=== PATIENT | female | born 1980 | race American Indian/Alaskan Native ===

== ENCOUNTER 2016-12-17 17:55 | Emergency (ER) | payer SELFPAY ==
[2016-12-17] MEDS ORDERED: TYLENOL ONE (19:55)
[2016-12-17] MEDS ORDERED: BICILLIN L-A IM ONE (22:37)
[2016-12-17] MEDS ORDERED: DECADRON IM ONE (22:37)
[2016-12-17] MEDS ORDERED: TORADOL IM ONE (22:37)
[2016-12-17] MEDS ORDERED: TORADOL ONE (22:40)
--- NOTE | 2016-12-17 23:00 | Emergency Department Report ---
ED ENT HPI - General Chief complaint: Sore Throat Stated complaint: SORE THROAT Time Seen by Provider: 12/17/16 22:23 Source: patient Mode of arrival: Ambulatory Limitations: No Limitations - History of Present Illness Initial comments: PT states she has had a sore throat for 3-4 days. PT states she was treating her fever and sore throat with OTC Tylenol at home. PT states today she felt like she would not be able to swallow a pill, so she came to the ED. PT reports that she works in a [place] and she is not sure what sick contacts she has been exposed to. MD complaint: sore throat -: Gradual, days(s) Severity scale (0 -10): 10 Quality: constant Consistency: constant Improves with: none Worsens with: swallowing, eating, other (talking ) Associated Symptoms: fever, pain with swallowing, sore throat. denies: rhinorrhea - Related Data Previous Rx's Medication Instructions Recorded Last Taken Type Acetaminophen/Codeine [Tylenol #3] 1 tab PO Q6H PRN #8 tab 12/17/16 Unknown Rx Allergies Allergy/AdvReac Type Severity Reaction Status Date / Time No Known Allergies Allergy Unverified 12/17/16 19:48 ED Dental HPI - General Chief complaint: Sore Throat Stated complaint: SORE THROAT Time Seen by Provider: 12/17/16 22:23 Source: patient Mode of arrival: Ambulatory Limitations: No Limitations - Related Data Previous Rx's Medication Instructions Recorded Last Taken Type Acetaminophen/Codeine [Tylenol #3] 1 tab PO Q6H PRN #8 tab 12/17/16 Unknown Rx Allergies Allergy/AdvReac Type Severity Reaction Status Date / Time No Known Allergies Allergy Unverified 12/17/16 19:48 ED Review of Systems ROS: Stated complaint: SORE THROAT Other details as noted in HPI Comment: All other systems reviewed and negative Constitutional: fever ENT: throat pain. denies: ear pain Respiratory: denies: shortness of breath, SOB with exertion, SOB at rest Gastrointestinal: denies: nausea, vomiting Genitourinary: denies: abnormal menses Musculoskeletal: myalgia Neurological: other (fatigue ) ED Past Medical Hx - Past Medical History Previous Medical History?: No - Surgical History Past Surgical History?: No - Social History Smoking Status: Never Smoker Substance Use Type: None - Medications Home Medications: Home Medications Medication Instructions Recorded Confirmed Last Taken Type Acetaminophen/Codeine [Tylenol #3] 1 tab PO Q6H PRN #8 tab 12/17/16 Unknown Rx ED Physical Exam - General Limitations: No Limitations General appearance: alert, in no apparent distress, obese - Head Head exam: Present: atraumatic, normocephalic, normal inspection - Eye Eye exam: Present: normal appearance, PERRL, EOMI. Absent: conjunctival injection - ENT ENT exam: Present: normal exam, mucous membranes moist, TM's normal bilaterally , normal external ear exam. Absent: normal orophraynx - Expanded ENT Exam Expanded Mouth exam: Absent: drooling, trismus, muffled voice Throat exam: Positive: tonsillar erythema, tonsillomegaly, tonsillar exudate. Negative: R peritonsillar mass, L peritonsillar mass - Neck Neck exam: Present: normal inspection, tenderness, full ROM, lymphadenopathy - Respiratory Respiratory exam: Present: normal lung sounds bilaterally. Absent: respiratory distress - Cardiovascular Cardiovascular Exam: Present: normal rhythm, tachycardia - GI/Abdominal GI/Abdominal exam: Present: soft. Absent: tenderness - Extremities Exam Extremities exam: Present: normal inspection, full ROM - Back Exam Back exam: Present: normal inspection, full ROM - Neurological Exam Neurological exam: Present: alert, oriented X3, normal gait - Psychiatric Psychiatric exam: Present: normal affect, normal mood - Skin Skin exam: Present: warm, dry, intact, normal color ED Course Vital Signs 12/17/16 12/17/16 12/17/16 19:48 22:18 23:19 Temperature 102.9 F H 99.1 F Pulse Rate 134 H 102 H Respiratory 18 20 Rate Blood Pressure 152/92 Blood Pressure 114/80 [Left] O2 Sat by Pulse 96 97 Oximetry - Reevaluation(s) Reevaluation #1: 12/17/16 22:59 PT aware of dx and plan of care. Reevaluation #2: 12/17/16 23:24 PT reports some improvement after medication. PT tolerating po fluids. PT given strict return precautions. PT has no questions at this time. - Pulse Oximetry Interpretation Digit-Finger Initial Pulse Oximetry Readin Actions Taken: none ED Medical Decision Making - Differential Diagnosis strep pharyngitis Critical Care Time: No Critical care attestation.: If time is entered above; I have spent that time in minutes in the direct care of this critically ill patient, excluding procedure time. ED Disposition Clinical Impression: Strep pharyngitis Disposition: - TO HOME OR SELFCARE Is pt being admited?: No Does the pt Need Aspirin: No Condition: Stable Instructions: Strep Throat (ED) Additional Instructions: No driving or alcohol after taking Tylenol #3 Increase fluids Return to the ED if worsening pain, or if you are unable to swallow liquids Prescriptions: Acetaminophen/Codeine [Tylenol #3] 1 tab PO Q6H PRN #8 tab PRN Reason: Pain , Severe (7-10) Referrals: PRIMARY CARE, [Primary Care Provider] - 3-5 Days LUIS RICO MD [Staff Physician] - 3-5 Days [facility] [Outside] - 3-5 Days Forms: Work/School Release Form(ED) Time of Disposition: 23:00
[2016-12-17 23:20] VITALS: BP 114/80
== END 2016-12-17 23:53 | disposition home or self-care (01) ==
LOC: ED 17:55
DX: J02.0 Streptococcal pharyngitis (principal)
CPT/HCPCS: 87430; 96372; 99282; J0561; J1100; J1885